=== PATIENT | male | born 1965 | race Caucasian/White ===

== ENCOUNTER 2017-01-26 19:51 | Emergency (ER) | payer SELFPAY ==
[~2017-01-26] VITALS: Ht 188 cm; Wt 64.1 kg
[~2017-01-26 19:51] MED LIST: PERC5TAB12 PO
[2017-01-26 19:53] VITALS: BP 116/75; PULSE 67; RESP 16; TEMP 97.6; O2SAT 96
--- NOTE | 2017-01-26 20:47 | PD ---
HPI Chief Complaint: ENT Complaint Time Seen by Provider: 20:46 Travel History International Travel<30 days: No Contact w/Intl Traveler<30days: No Traveled to known affect area: No History of Present Illness HPI 51-year-old male presents to emergency department for evaluation of cerumen impaction. Patient states he has to come to the hospital every 6 months to get his wax removed. Patient states he does not have a primary care provider therefore he comes to the emergency department. Denies any recent injury. No fever or chills. Dates that his ear feels clog. No other symptoms to report. History Past Medical Histgory Tetanus Vaccination: > 5 Years Hx Chemotherapy: No Hx Radiation Therapy: No Social History Alcohol Use: No Tobacco Use: Yes (1/2PPD) Allergies-Medications (Allergen,Severity, Reaction): Coded Allergies: No Known Allergies (Unverified , 01/26/17) Reported Meds & Prescriptions Reported Meds & Active Scripts Active Percocet 5-325 mg (Oxycodone/Acetaminophen) Oxycodone 5/325 Acetaminophen Tab 1- 2 Tab PO Q6H PRN Review of Systems Except as stated in HPI: all other systems reviewed are Neg Physical Exam Narrative GENERAL: Well-nourished, well-developed male patient in no acute distress SKIN: Focused skin assessment warm/dry. HEAD: Normocephalic. No mastoid tenderness to palpation EARS: Bilateral pinnae and external canals appear within normal limits. Bilateral tympanic membranes are unable to be visualized due to cerumen impaction. EYES: No scleral icterus. No injection or drainage. NECK: Supple, trachea midline. No JVD or lymphadenopathy. CARDIOVASCULAR: Regular rate and rhythm without murmurs, gallops, or rubs. RESPIRATORY: Breath sounds equal bilaterally. No accessory muscle use. GASTROINTESTINAL: Abdomen soft, non-tender, nondistended. MUSCULOSKELETAL: No cyanosis, or edema. BACK: Nontender without obvious deformity. No CVA tenderness. Data Data Last Documented VS Vital Signs Date Time Temp Pulse Resp B/P Pulse Ox O2 Delivery O2 Flow Rate FiO2 01/26/17 19:53 97.6 67 16 116/75 96 Room Air MDM Medical Screen Exam Complete: Yes Emergency Medical Condition: No Differential Diagnosis Cerumen impaction Narrative Course 51-year-old male presents to emergency department for evaluation a cerumen impaction. Patient states that this happens every 6 months or so. His vital signs are stable. He has not been recently ill. At this time there are no urgent or emergent needs for medical intervention identified. A medical screening exam was performed: At the time of evaluation the presenting medical condition was determined not to be of an emergent nature. The patient was given the option of receiving additional care, but declined. Patient was given options for additional community resources from which to obtain care. The Patient Has Been advised to seek medical attention for their presenting complaint. The patient has been advised to return to the ER at any time if an emergent condition develops. Primary Impression: Cerumen impaction Qualified Code: H61.23 - Bilateral impacted cerumen Additional Impression: Encounter for medical screening examination Condition: Stable Radha Hathaway January 26, 2017 20:47
== END 2017-01-26 20:50 | disposition left against medical advice (07) ==
LOC: NEPK 19:51
DX: H61.23 Impacted cerumen, bilateral (principal)
CPT/HCPCS: 99281